=== PATIENT | female | born 1955 | race Hispanic/Latino ===

== ENCOUNTER 2017-05-16 11:03 | Emergency (ER) | payer OTHER ==
[~2017-05-16] VITALS: Ht 157.5 cm; Wt 69.0 kg
[~2017-05-16 11:03] MED LIST: ACID REFLUX MED; NAPROSYN500 MG OR; PRILOSEC20 MG/CAP OR; THYROID MED; [UNRECOGNIZED DRUG - OTHER] PO; [UNRECOGNIZED DRUG - REMARK]; [UNRECOGNIZED DRUG - REMARK] PO
[2017-05-16 13:25] LABS: URINE BILIRUBIN - DIPSTICK NEGATIVE (NEGATIVE); URINE BLOOD DIPSTICK NEGATIVE (NEGATIVE); URINE COLOR YELLOW; URINE GLUCOSE - DIPSTICK NEGATIVE (NEGATIVE); URINE KETONE NEGATIVE (NEGATIVE); URINE LEUK ESTERASE NEGATIVE (NEGATIVE); URINE PH 5.5 (4.5-8.0); URINE PROTEIN - DIPSTICK NEGATIVE (NEG-TRACE); URINE SPECIFIC GRAVITY 1.025; URINE UROBILINOGEN - DIPSTICK 0.2 E.U./dL (0.2)
[2017-05-16 13:26] LABS: HEMATOCRIT 40.5 % (37.0-47.0); HEMOGLOBIN 13.4 g/dl (12.0-16.0); IMMATURE GRANULOCYTES 0.6 % (0.0-1.0); MEAN CELL VOLUME 93.3 fL CALC (80.0-100.0); MEAN CORPUSCULAR HGB 30.9 pG CALC (26.0-32.0); MEAN CORPUSCULAR HGB CONC 33.1 g/L CALC (32.0-36.0); NEUT# 9.52 thou/uL (2.00-7.15); RED BLOOD COUNT 4.34 mill/uL (4.20-5.60); RED CELL DISTRI WIDTH 13.6 % (11.5-15.5)
[2017-05-16 13:41] LABS: ALBUMIN 4.3 g/dL (3.2-5.0); ALKALINE PHOSPHATASE 93 u/l (38-126); AMYLASE 85 u/l (30-110); ANION GAP 15 (6-22 (CALC)); BILIRUBIN, TOTAL 0.9 mg/dL (0.0-1.4); BUN 20 mg/dL (7-17); BUN/CREATININE RATIO 32 (12-20 (CALC)); CARBON DIOXIDE 25 mmol/l (22-30); CHLORIDE 106 mmol/l (95-108); CREATININE 0.6 mg/dL (0.5-1.0); GFR > 60 ML/MIN (>=60 (CALC)); GFR FOR AFR.AMER. > 60 ML/MIN (>=60 (CALC)); GLUCOSE 140 mg/dL (65-105); LIPASE 148 u/l (23-300); POTASSIUM 3.5 mmol/l (3.5-5.1); SGOT/AST 46 u/l (14-36); SGPT/ALT 45 u/l (9-52); SODIUM 143 mmol/l (137-146); TOTAL PROTEIN 7.5 g/dL (6.3-8.2)
[2017-05-16 13:43] LABS: URINE CLARITY TURBID; URINE NITRITE - DIPSTICK POSITIVE (Negative)
[2017-05-16 14:00] LABS: URINE BACTERIA MANY hpf; URINE SQUAMOUS EPITHELIAL CELL FEW EPI/hpf (0-FEW)
[2017-05-16] MEDS ORDERED: ZOFRAN4 M1 PO (18:11)
[2017-05-16] MEDS ORDERED: PRILOSEC20 MG PO (18:11)
[2017-05-16 20:18] VITALS: BP 135/74
== END 2017-05-16 19:25 | disposition home or self-care (01) | DRG 392 ==
LOC: ED 11:03
PROVIDERS: Family Medicine
DX: R10.11 Right upper quadrant pain (principal); I10 Essential (primary) hypertension; K82.8 Other specified diseases of gallbladder; K21.9 Gastro-esophageal reflux disease without esophagitis; M19.90 Unspecified osteoarthritis, unspecified site

== ENCOUNTER 2021-08-20 10:56 | Emergency (ER) | payer SELFPAY ==
[~2021-08-20] VITALS: Ht 167.6 cm; Wt 70.0 kg
[~2021-08-20 10:56] MED LIST changes: +PRILOSEC20 MG PO; +ZOFRAN4 M1 PO
[2021-08-20 12:20] LABS: TOTAL PROTEIN 6.9 g/dL (6.3-8.2)
[2021-08-20 12:25] LABS: HEMATOCRIT 40.8 % (37.0-47.0); HEMOGLOBIN 13.2 g/dl (12.0-16.0); IMMATURE GRANULOCYTES 1.1 % (0.0-5.0); MEAN CELL VOLUME 87.9 fL CALC (80.0-100.0); MEAN CORPUSCULAR HGB 28.4 pG CALC (26.0-32.0); MEAN CORPUSCULAR HGB CONC 32.4 g/dL CAL (32.0-36.0); NEUT# 14.72 thou/uL (2.00-7.15); RED BLOOD COUNT 4.64 mill/uL (4.20-5.60); RED CELL DISTRI WIDTH 14.3 % (11.5-15.5)
[2021-08-20 12:28] LABS: ALBUMIN 3.4 g/dL (3.2-5.0); BILIRUBIN, TOTAL 1.6 mg/dL (0.0-1.4); CREATININE 4.1 mg/dL (0.5-1.0); POTASSIUM 5.1 mmol/l (3.5-5.1)
[2021-08-20] MEDS ORDERED: FOLIC ACID1 M1 PO (14:55)
[2021-08-20] MEDS ORDERED: LISINOP/HCTZ1 TA2 PO (14:56)
[2021-08-20] MEDS ORDERED: LEVOTHYROXIN125 MC1 PO (14:56)
[2021-08-20] MEDS ORDERED: FLUOXETINE10 MG PO (14:56)
[2021-08-20] MEDS ORDERED: PREDNISONE10 MG PO (14:57)
[2021-08-20] MEDS ORDERED: LEFLUNOMIDE20 MG PO (14:57)
[2021-08-20 15:10] LABS: URINE BLOOD DIPSTICK LARGE (NEGATIVE); URINE COLOR YELLOW; URINE GLUCOSE - DIPSTICK 100 mg/dL (NEGATIVE); URINE KETONE TRACE mg/dL (NEGATIVE); URINE LEUK ESTERASE NEGATIVE (NEGATIVE); URINE PH 5.5 (4.5-8.0); URINE PROTEIN - DIPSTICK 100 mg/dL (NEG-TRACE); URINE SPECIFIC GRAVITY 1.025; URINE UROBILINOGEN - DIPSTICK 0.2 E.U./dL (0.2)
[2021-08-20 15:11] LABS: URINE BILIRUBIN - DIPSTICK SMALL (NEGATIVE); URINE NITRITE - DIPSTICK NEGATIVE (Negative)
[2021-08-20 15:13] LABS: URINE AMORPH SEDIMENT MANY hpf (NONE-FEW); URINE SQUAMOUS EPITHELIAL CELL MODERATE EPI/hpf (0-FEW)
[2021-08-20 23:05] VITALS: BP 96/58
== END 2021-08-20 23:05 | disposition short-term general hospital (02) | DRG 682 ==
LOC: ED 10:56
PROVIDERS: Emergency Medicine
PROC: 0T9B70Z Drainage of Bladder with Drainage Device, Via Natural or Artificial Opening (ICD-10-PCS; principal; 2021-08-20)
DX: N17.9 Acute kidney failure, unspecified (principal); K85.90 Acute pancreatitis without necrosis or infection, unspecified; M62.82 Rhabdomyolysis; E87.1 Hypo-osmolality and hyponatremia; R79.89 Other specified abnormal findings of blood chemistry; I10 Essential (primary) hypertension; Z90.49 Acquired absence of other specified parts of digestive tract; Z20.822 Contact with and (suspected) exposure to COVID-19
CPT/HCPCS: S0164

== ENCOUNTER 2023-07-16 09:06 | Inpatient (IN) | payer SELFPAY ==
[2023-07-16] VITALS (121 sets, daily range): BP systolic 59–169; BP diastolic 32–84
[~2023-07-16] VITALS: Ht 167.6 cm; Wt 70.4 kg
[~2023-07-16 09:06] MED LIST changes: +FLUOXETINE10 MG PO; +FOLIC ACID1 M1 PO; +LEFLUNOMIDE20 MG PO; +LEVOTHYROXIN125 MC1 PO; +LISINOP/HCTZ1 TA2 PO; +PREDNISONE10 MG PO
[2023-07-16 10:08] LABS: CREATININE 1.4 mg/dL (0.5-1.0); POTASSIUM 3.5 mmol/l (3.5-5.1); TOTAL PROTEIN 6.6 g/dL (6.3-8.2)
[2023-07-16 10:10] LABS: BASO% 0.4 % (0-3); EOS% 0.4 % (0-8); HEMATOCRIT 34.5 % (37.0-47.0); HEMOGLOBIN 11.6 g/dl (12.0-16.0); IMMATURE GRANULOCYTES 0.4 % (0.0-5.0); LYMPH% 44.9 % (15-41); MEAN CELL VOLUME 96.4 fL CALC (80.0-100.0); MEAN CORPUSCULAR HGB 32.4 pG CALC (26.0-32.0); MEAN CORPUSCULAR HGB CONC 33.6 g/dL CAL (32.0-36.0); MONO% 1.2 % (2-13); NEUT# 1.34 thou/uL (2.00-7.15); NEUT% 52.7 % (42-76); RED BLOOD COUNT 3.58 mill/uL (4.20-5.60); RED CELL DISTRI WIDTH 15.6 % (11.5-15.5)
[2023-07-16 10:16] LABS: BILIRUBIN, TOTAL 1.3 mg/dL (0.02-1.3)
[2023-07-16 13:27] LABS: URINE BILIRUBIN - DIPSTICK Negative (NEGATIVE); URINE BLOOD DIPSTICK Trace-intact (NEGATIVE); URINE GLUCOSE - DIPSTICK Negative (NEGATIVE); URINE KETONE Negative (NEGATIVE); URINE LEUK ESTERASE Negative (NEGATIVE); URINE PH 6.5 (4.5-8.0); URINE PROTEIN - DIPSTICK 30 mg/dL (NEG-TRACE); URINE SPECIFIC GRAVITY 1.015; URINE UROBILINOGEN - DIPSTICK 0.2 E.U./dL (0.2)
[2023-07-16 13:31] LABS: URINE COLOR Yellow; URINE NITRITE - DIPSTICK Negative (Negative)
[2023-07-16 13:45] LABS: URINE BACTERIA RARE hpf; URINE EPITHELIAL CELLS RARE EPI/hpf (0-FEW); URINE RBC 0-2 RBC/hpf (0-5); URINE WBC 0-2 WBC/hpf (0-5)
[2023-07-16 22:49] LABS: HEMATOCRIT 29.7 % (37.0-47.0); HEMOGLOBIN 9.7 g/dl (12.0-16.0); MEAN CORPUSCULAR HGB 32.3 pG CALC (26.0-32.0); MEAN CORPUSCULAR HGB CONC 32.7 g/dL CAL (32.0-36.0); RED CELL DISTRI WIDTH 15.9 % (11.5-15.5)
[2023-07-16 23:04] LABS: CREATININE 1.5 mg/dL (0.5-1.0); POTASSIUM 3.7 mmol/l (3.5-5.1)
[2023-07-16 23:05] LABS: ALBUMIN 2.5 g/dL (3.2-5.0); BILIRUBIN, TOTAL 0.6 mg/dL (0.02-1.3); TOTAL PROTEIN 4.6 g/dL (6.3-8.2)
[2023-07-17] VITALS (72 sets, daily range): BP systolic 85–131; BP diastolic 50–94
[2023-07-17 06:54] LABS: BASO% 0.2 % (0-3); EOS% 1.1 % (0-8); HEMATOCRIT 28.7 % (37.0-47.0); HEMOGLOBIN 9.5 g/dl (12.0-16.0); IMMATURE GRANULOCYTES 1.4 % (0.0-5.0); LYMPH% 21.8 % (15-41); MEAN CORPUSCULAR HGB 33.1 pG CALC (26.0-32.0); MEAN CORPUSCULAR HGB CONC 33.1 g/dL CAL (32.0-36.0); NEUT# 3.24 thou/uL (2.00-7.15); NEUT% 73.5 % (42-76); RED BLOOD COUNT 2.87 mill/uL (4.20-5.60); RED CELL DISTRI WIDTH 15.9 % (11.5-15.5)
[2023-07-17 07:09] LABS: ALBUMIN 2.5 g/dL (3.2-5.0); BILIRUBIN, TOTAL 0.5 mg/dL (0.02-1.3); CREATININE 1.2 mg/dL (0.5-1.0); TOTAL PROTEIN 4.8 g/dL (6.3-8.2)
[2023-07-18 03:23] VITALS: BP 110/58
[2023-07-18 06:25] VITALS: BP 151/81
[2023-07-18 07:00] LABS: EOS% 0.8 % (0-8); HEMATOCRIT 25.8 % (37.0-47.0); HEMOGLOBIN 8.4 g/dl (12.0-16.0); IMMATURE GRANULOCYTES 0.8 % (0.0-5.0); LYMPH% 17.4 % (15-41); MEAN CELL VOLUME 99.2 fL CALC (80.0-100.0); MEAN CORPUSCULAR HGB 32.3 pG CALC (26.0-32.0); MEAN CORPUSCULAR HGB CONC 32.6 g/dL CAL (32.0-36.0); MONO% 1.5 % (2-13); NEUT# 5.89 thou/uL (2.00-7.15); NEUT% 79.5 % (42-76); RED BLOOD COUNT 2.6 mill/uL (4.20-5.60); RED CELL DISTRI WIDTH 15.7 % (11.5-15.5)
[2023-07-18 07:37] LABS: ALBUMIN 2.3 g/dL (3.2-5.0); ALKALINE PHOSPHATASE 61 u/l (38-126); ANION GAP 10 (6-22 (CALC)); BILIRUBIN, TOTAL 0.5 mg/dL (0.02-1.3); BUN 12 mg/dL (8-23); BUN/CREATININE RATIO 16 (12-20 (CALC)); CARBON DIOXIDE 19 mmol/l (22-30); CHLORIDE 108 mmol/l (95-108); CREATININE 0.7 mg/dL (0.5-1.0); GFR FOR AFR.AMER. > 60 ML/MIN (>=60 (CALC)); GFR OTHER RACES > 60 ML/MIN (>=60 (CALC)); MAGNESIUM 1.2 mg/dL (1.6-2.3); POTASSIUM 3.2 mmol/l (3.5-5.1); SGOT/AST 36 u/l (9-36); SODIUM 133 mmol/l (137-146); TOTAL PROTEIN 4.3 g/dL (6.3-8.2)
[2023-07-18 10:51] VITALS: BP 152/84
[2023-07-18 13:01] LABS: EOS% 0.9 % (0-8); HEMOGLOBIN 8.8 g/dl (12.0-16.0); IMMATURE GRANULOCYTES 0.6 % (0.0-5.0); LYMPH% 14.5 % (15-41); MEAN CELL VOLUME 97.8 fL CALC (80.0-100.0); MEAN CORPUSCULAR HGB 31.9 pG CALC (26.0-32.0); MEAN CORPUSCULAR HGB CONC 32.6 g/dL CAL (32.0-36.0); MONO% 0.9 % (2-13); NEUT# 5.42 thou/uL (2.00-7.15); NEUT% 83.1 % (42-76); RED BLOOD COUNT 2.76 mill/uL (4.20-5.60); RED CELL DISTRI WIDTH 15.4 % (11.5-15.5)
[2023-07-18 14:40] VITALS: BP 117/73
[2023-07-18 19:04] VITALS: BP 157/84
[2023-07-19 00:42] VITALS: BP 145/87
[2023-07-19 04:15] VITALS: BP 132/75
[2023-07-19 06:26] LABS: EOS% 1.1 % (0-8); HEMATOCRIT 29.5 % (37.0-47.0); HEMOGLOBIN 9.9 g/dl (12.0-16.0); IMMATURE GRANULOCYTES 0.6 % (0.0-5.0); LYMPH% 14.7 % (15-41); MEAN CELL VOLUME 95.5 fL CALC (80.0-100.0); MEAN CORPUSCULAR HGB CONC 33.6 g/dL CAL (32.0-36.0); MONO% 1.7 % (2-13); NEUT# 4.42 thou/uL (2.00-7.15); NEUT% 81.9 % (42-76); RED BLOOD COUNT 3.09 mill/uL (4.20-5.60); RED CELL DISTRI WIDTH 15.5 % (11.5-15.5)
[2023-07-19 06:34] LABS: ALBUMIN 2.6 g/dL (3.2-5.0); ALKALINE PHOSPHATASE 63 u/l (38-126); BILIRUBIN, TOTAL 0.6 mg/dL (0.02-1.3); BUN 5 mg/dL (8-23); BUN/CREATININE RATIO 7 (12-20 (CALC)); CHLORIDE 100 mmol/l (95-108); CREATININE 0.6 mg/dL (0.5-1.0); GFR FOR AFR.AMER. > 60 ML/MIN (>=60 (CALC)); GFR OTHER RACES > 60 ML/MIN (>=60 (CALC)); MAGNESIUM 1.3 mg/dL (1.6-2.3); POTASSIUM 3.5 mmol/l (3.5-5.1); SGOT/AST 37 u/l (9-36); SODIUM 133 mmol/l (137-146); TOTAL PROTEIN 4.7 g/dL (6.3-8.2)
[2023-07-19 06:41] LABS: ANION GAP 12 (6-22 (CALC)); CARBON DIOXIDE 25 mmol/l (22-30)
[2023-07-19 07:41] VITALS: BP 134/81
[2023-07-19 08:11] VITALS: BP 134/81
[2023-07-19 11:51] VITALS: BP 109/58
[2023-07-19] MEDS ORDERED: METRONIDAZOLE500 MG PO (12:12)
[2023-07-19] MEDS ORDERED: CIPROFLOXACN500 MG PO (12:12)
== END 2023-07-19 15:01 | disposition home or self-care (01) | DRG 871 ==
LOC: ED 09:06 → ED-I 14:28 → ED 17:42 → ICU 17:43 → MS2 07-17 14:41
PROVIDERS: Family Medicine; ADMIT Student in an Organized Health Care Education/Training Program; ATTEND Student in an Organized Health Care Education/Training Program
PROC: 05HN33Z Insertion of Infusion Device into Left Internal Jugular Vein, Percutaneous Approach (ICD-10-PCS; principal; 2023-07-16)
PROC: 3E033XZ Introduction of Vasopressor into Peripheral Vein, Percutaneous Approach (ICD-10-PCS; 2023-07-16)
DX: A41.9 Sepsis, unspecified organism (principal); R65.21 Severe sepsis with septic shock; N17.9 Acute kidney failure, unspecified; A04.4 Other intestinal Escherichia coli infections; A03.0 Shigellosis due to Shigella dysenteriae; E87.20 Acidosis, unspecified; I95.9 Hypotension, unspecified; E87.6 Hypokalemia; E83.42 Hypomagnesemia; E86.0 Dehydration
CPT/HCPCS: J0131; J1650; J3475; S0164